=== PATIENT | male | born 1965 | race Caucasian/White ===

== ENCOUNTER 2018-04-03 05:39 | Emergency (ER) | payer OTHER ==
[2018-04-03] MEDS ORDERED: Ondansetron INJ* 2 MG/ML VIAL IV ONE (05:49)
[2018-04-03] MEDS ORDERED: NS 0.9% 1000 ML* 1,000 ML IV ONE (05:49)
[2018-04-03] MEDS ORDERED: Ketorolac INJ* 30 MG/ML 1 ML VIAL IV PUSH ONE (05:49)
--- NOTE | 2018-04-03 05:50 | ED ---
Back Pain - HPI Summary HPI Summary: Patient is a 52-year-old who presents to the emergency department for intermittent right flank pain and urinary urgency that started early this morning. Patient states he has passed kidney stone in the past and symptoms are similar today. Denies associate symptoms of fever, chills, dysuria, hematuria, chest pain, shortness of breath. Past medical history of depression and hypercholesterolemia. Symptoms are moderate in severity. No current modifying factors. - History of Current Complaint Chief Complaint: EDFlankPain Stated Complaint: FLANK PAIN Time Seen by Provider: 04/03/18 05:49 Hx Obtained From: Patient Pain Intensity: 5 - Allergies/Home Medications Allergies/Adverse Reactions: Allergies Allergy/AdvReac Type Severity Reaction Status Date / Time Penicillins Allergy See Comment Verified 04/03/18 05:43 PMH/Surg Hx/FS Hx/Imm Hx Previously Healthy: Yes Infectious Disease History: No Infectious Disease History: Denies: Traveled Outside the [place] in Last 30 Days - Family History Known Family History: Positive: Other - noncontributory - Social History Occupation: Employed Full-time Lives: With Family Review of Systems Constitutional: Negative Negative: Fever, Chills Cardiovascular: Negative Respiratory: Negative Gastrointestinal: Negative Negative: Abdominal Pain, Vomiting, Nausea Positive: flank pain, urgency All Other Systems Reviewed And Are Negative: Yes Physical Exam Triage Information Reviewed: Yes Vital Signs On Initial Exam: Initial Vitals Temp Pulse Resp BP Pulse Ox 97.1 F 97 14 126/88 98 04/03/18 05:40 04/03/18 05:40 04/03/18 05:40 04/03/18 05:40 04/03/18 05:40 Vital Signs Reviewed: Yes Appearance: Positive: Well-Appearing - Pt. sitting on bed in NAD. Skin: Positive: Warm, Dry Head/Face: Positive: Normal Head/Face Inspection Eyes: Positive: Normal, EOMI Neck: Positive: Supple Respiratory/Lung Sounds: Positive: Clear to Auscultation, Breath Sounds Present Cardiovascular: Positive: Normal Abdomen Description: Positive: Nontender, Soft, Other: - Mild right CVA tenderness. Negative: Guarding Neurological: Positive: Normal, CN Intact II-III Psychiatric: Positive: Affect/Mood Appropriate Diagnostics - Vital Signs Vital Signs Temp Pulse Resp BP Pulse Ox 04/03/18 05:40 97.1 F 97 14 126/88 98 - Laboratory Result Diagrams: 04/03/18 06:01 04/03/18 06:01 Lab Statement: Any lab studies that have been ordered have been reviewed, and results considered in the medical decision making process. Back Pain Course/Dx - Course Course Of Treatment: Patient presenting with acute onset intermittent right flank pain and urinary hesitancy. He is afebrile with stable vital signs. Suspect ureterolithiasis patient started IV fluids and given Toradol and Zofran. Labs and CAT scan ordered. Blood work is unremarkable. Urinalysis shows elevated RBCs and is negative for infection. CT scan shows a 3 mm calculus in the right distal ureter mild hydronephrosis, reading per virtual radiology. 0700: Pt. is resting comfortably. Results discussed. Pain greatly improved and pt. feels good to go home. Rx for percocet, zofran and flomax sent to pharm. [employer] reviewed and no red flags noted. Advised to increase fluids. Strain urine. To call referral line to establish a PCP. To f.u with urology if needed. To return to ER for increased pain, fever, vomiting or if concerned. Pt. understands and agrees with plan. - Diagnoses Differential Diagnosis/HQI/PQRI: Positive: Renal Colic, Strain, Sprain Provider Diagnoses: Urolithiasis, Hydronephrosis Discharge - Sign-Out/Discharge Documenting (check all that apply): Patient Departure - Discharge Plan Condition: Improved Disposition: HOME Prescriptions: Ondansetron TAB* [Zofran 4 MG Tab*] 4 mg PO Q6H PRN #12 tab PRN Reason: Nausea oxyCODONE/Acetamin 5/325 MG* [Percocet 5/325 TAB*] 1 tab PO Q6H PRN #12 tab MDD 4 tablets PRN Reason: Pain Tamsulosin CAP* [Flomax CAP*] 0.4 mg PO DAILY #5 cap Patient Education Materials: Kidney Stones (ED) Referrals: [facility] [address] [Outside] [facility] [place] [facility] [Outside] Augustin Lara MD [Medical Doctor] - Additional Instructions: Call the physician referral line to establish a PCP Follow up with urology if pain persist Take medication as directed Increase fluids Strain urine Return to ER for uncontrollable pain, vomiting, fever, or if concerned - Billing Disposition and Condition Condition: IMPROVED Disposition: Home
[2018-04-03 06:18] LABS: ABS Basophils 0 10^3/ul (0-0.2); ABS Eosinophils 0.1 10^3/ul (0-0.6); ABS Lymphocytes 1.7 10^3/ul (1.0-4.8); ABS Monocytes 0.6 10^3/ul (0-0.8); ABS Neutrophils 2.7 10^3/ul (1.5-7.7); ABS Nucleated RBC 0 10^3/ul; Eosinophil % 1.6 % (0-6); Hematocrit 45 % (42-52); Hemoglobin 15.2 g/dl (14.0-18.0); Lymphocyte % 32.5 % (25-47); Mean Corpuscular HGB Conc 34 g/dl (31-36); Mean Corpuscular Hemoglobin 31 pg (27-31); Mean Corpuscular Volume 91 fL (80-94); Mean Platelet Volume 6.4 um3 (7.4-10.4); Nucleated Red Blood Cells % 0.1; Platelet Count 334 10^3/ul (150-450); Red Blood Count 4.91 10^6/ul (4.00-5.40); Red Cell Distribution Width 13 % (10.5-15); White Blood Count 5.1 10^3/ul (3.5-10.8)
[2018-04-03 06:33] LABS: Urine Appearance Cloudy; Urine Blood 1+ (Negative); Urine Color Yellow; Urine Ketones Negative (Negative); Urine Protein Negative (Negative); Urine Red Blood Cell 3+(>10/hpf) (Absent); Urine Specific Gravity 1.024 (1.010-1.030); Urine Urobilinogen Negative (Negative); Urine White Blood Cell Trace(0-5/hpf) (Absent)
--- NOTE | 2018-04-03 06:39 | RAD ---
EXAM: CT Abdomen and Pelvis Without Intravenous Contrast EXAM DATE/TIME: 04/03/2018 6:19 AM CLINICAL HISTORY: 52 years old, male; Pain; Abdominal pain; Flank; Right; Additional info: Right flank pain TECHNIQUE: Axial computed tomography images of the abdomen and pelvis without intravenous contrast. All CT scans at this facility use at least one of these dose optimization techniques: automated exposure control; mA and/or kV adjustment per patient size (includes targeted exams where dose is matched to clinical indication); or iterative reconstruction. Coronal and sagittal reformatted images were created and reviewed. COMPARISON: No relevant prior studies available. FINDINGS: Lower thorax: No acute findings. ABDOMEN: Liver: Normal. No mass. Gallbladder and bile ducts: Normal. No calcified stones. No ductal dilation. Pancreas: Normal. No ductal dilation. Spleen: Normal. No splenomegaly. Adrenals: Normal. No mass. Kidneys and ureters: There is a 3 mm calculus noted in the distal right ureter the vicinity of the UVJ with associated minimal right-sided hydroureteronephrosis. No nonobstructing renal calculi noted within the right kidney measuring up to 4 mm. The left kidney is unremarkable with no evidence of hydronephrosis. Stomach and bowel: Normal. No obstruction. No mucosal thickening. Appendix: No evidence of appendicitis. PELVIS: Bladder: Unremarkable as visualized. Reproductive: There is a prostatic calcification noted. ABDOMEN and PELVIS: Intraperitoneal space: Normal. No free air. No significant fluid collection. Bones/joints: No acute fracture. No dislocation. Soft tissues: There is a small umbilical hernia containing mesenteric fat. Vasculature: Normal. No abdominal aortic aneurysm. Lymph nodes: Normal. No enlarged lymph nodes. IMPRESSION: There is a 3 mm calculus noted in the distal right ureter the vicinity of the UVJ with associated minimal right-sided hydroureteronephrosis. To contact [facility] with a general question: Operations Center - [phone] For direct physician to physician contact: Physician Hotline - [phone] [facility] ([facility] Facility ID #[id number])
[2018-04-03 06:40] LABS: EGFR Non-African American 83.9 (>60)
[2018-04-03] MEDS ORDERED: Morphine INJ* 4 MG/ML 1 ML SYRINGE (NEW SYRINGE VERSION) IV ONE (06:44)
[2018-04-03 07:21] VITALS: BP 123/86
== END 2018-04-03 07:20 | disposition home or self-care (01) ==
LOC: ED 05:39
DX: N13.2 Hydronephrosis with renal and ureteral calculous obstruction (principal); Z87.442 Personal history of urinary calculi; Z88.0 Allergy status to penicillin
CPT/HCPCS: 36415; 74176; 80053; 81003; 81015; 85025; 87086; 96374; 96375; 99282; J1885; J2405